=== PATIENT | female | born 1980 | race Caucasian/White ===

== ENCOUNTER → 2020-07-26 | Outpatient (CLI) | payer OTHER ==
[~2020-07-26] MED LIST: IBUP800 PO; Norco 7.5-3251 EACH PO; PRENATAL TABLE1 EAC2 PO
== END ==
LOC: LAB SHORT 07:29 → PLD 07:29
DX: D22.39 Melanocytic nevi of other parts of face (principal)
CPT/HCPCS: 88305

== ENCOUNTER 2020-09-25 02:56 | Inpatient (IN) | payer OTHER ==
[~2020-09-25] VITALS: Ht 157.5 cm; Wt 104.5 kg
[~2020-09-25 02:56] MED LIST changes: -IBUP800 PO; -Norco 7.5-3251 EACH PO
[2020-09-25 03:43] LABS: BASOPHILS ABSOLUTE AUTO 0.02 K/mm3 (0.00-0.23); BASOPHILS PERCENT AUTO 0 % (0-2); EOSINOPHILS ABSOLUTE AUTO 0.04 K/mm3 (0.00-0.68); EOSINOPHILS PERCENT AUTO 0 % (0-6); Hematocrit 34.9 % (33.0-51.0); Hemoglobin 11.7 g/dL (11.5-16.0); IMMATURE GRAN ABSOLUTE AUTO 0.07 K/mm3 (0.00-0.10); IMMATURE GRAN PERCENT AUTO 1 % (0-1); LYMPHOCYTES ABSOLUTE AUTO 1.66 K/mm3 (0.84-5.20); LYMPHOCYTES PERCENT AUTO 13 % (21-46); MONOCYTES ABSOLUTE AUTO 0.65 K/mm3 (0.16-1.47); MONOCYTES PERCENT AUTO 5 % (4-13); Mean Corpuscular HGB 30.1 pg (26.0-34.0); Mean Corpuscular HGB Conc 33.5 g/dL (31.5-36.5); Mean Corpuscular Volume 90 fL (80-100); Mean Platelet Volume 11.6 fL (9.1-12.4); NEUTROPHILS ABSOLUTE AUTO 10.04 K/mm3 (1.96-9.15); NEUTROPHILS PERCENT AUTO 80 % (41-73); Platelet Count 211 K/mm3 (150-400); RDW Coefficient Variation 13.7 % (11.7-14.2); RDW Standard Deviation 44.6 fL (35.1-46.3); Red Blood Cell Count 3.89 M/mm3 (3.80-5.20); White Blood Cell Count 12.48 K/mm3 (4.00-11.30)
--- NOTE | 2020-09-25 06:45 | NUR ---
SHIFT SUMMARY- REPORT IS GIVEN TO NIKKO TIERNEY. PT IS REPORTING LESS FREQUENT UC'S RATED 5/10 DESPITE IV FENTANYL. PT STATES SHE IS READY TO BE DONE AND TAKE A NAP. PT IS PREPPED AND READY FOR HER C/S.
--- NOTE | 2020-09-25 07:15 | NUR ---
PT HERE SINCE 0230 REPORTING CONTRATIONS. PT IS SCHDULED TO A RCS AT 0730 THIS SHIFT AND BABY IS IN BREECH PRESENTATION. PT'S LUNGS ARE CLEAR AND HAS A REGULAR HR AND RYTHM, AWAITING C/S.
[2020-09-26 05:30] LABS: Hematocrit 30.7 % (33.0-51.0); Mean Corpuscular HGB 30.4 pg (26.0-34.0); Mean Corpuscular HGB Conc 32.6 g/dL (31.5-36.5); Mean Corpuscular Volume 93 fL (80-100); Mean Platelet Volume 10.2 fL (9.1-12.4); Platelet Count 165 K/mm3 (150-400); RDW Coefficient Variation 13.9 % (11.7-14.2); RDW Standard Deviation 47.2 fL (35.1-46.3); Red Blood Cell Count 3.29 M/mm3 (3.80-5.20); White Blood Cell Count 8.94 K/mm3 (4.00-11.30)
--- NOTE | 2020-09-26 07:17 | NUR ---
09/26/20 0330 baby removed from moms sleeping arms and returned to crib, reminded mom for the #4 time of safe sleeping policy and to call RN or ask her SO to return baby to crib if she is sleepy
[2020-09-26] MEDS ORDERED: IBUP800 PO (18:49)
[2020-09-26] MEDS ORDERED: Norco 7.5-3251 EACH PO (18:50)
--- NOTE | 2020-09-27 15:44 | NUR ---
LATE ENTRY INITIATE PROTOCOL L&D - 09/25/20 @ 0509 PER SHAAN JARAMILLO & [facility]
== END 2020-09-26 20:08 | disposition home or self-care (01) | DRG 785 ==
LOC: BC 02:56
PROVIDERS: ADMIT Obstetrics & Gynecology
PROC: 10D00Z1 Extraction of Products of Conception, Low, Open Approach (ICD-10-PCS; principal; 2020-09-25 07:30)
PROC: 0UT70ZZ Resection of Bilateral Fallopian Tubes, Open Approach (ICD-10-PCS; 2020-09-25 07:30)
DX: O32.1XX0 Maternal care for breech presentation, not applicable or unspecified (principal); O34.211 Maternal care for low transverse scar from previous cesarean delivery; Z37.0 Single live birth; Z3A.39 39 weeks gestation of pregnancy; Z30.2 Encounter for sterilization; O99.214 Obesity complicating childbirth; E66.01 Morbid (severe) obesity due to excess calories
CPT/HCPCS: 36415; 85025; 85027; 86850; 86900; 86901; 86923; 88302; A9270; J0690; J1885; J2210; J2590; J2765; J3010; J7120

== ENCOUNTER → 2022-08-14 | Outpatient (CLI) | payer OTHER ==
[~2022-08-14] MED LIST changes: +IBUP800 PO; +Norco 7.5-3251 EACH PO
== END | disposition home or self-care (01) ==
LOC: PLD 15:04 → LAB SHORT 15:04
DX: N80.03 Adenomyosis of the uterus (principal)
CPT/HCPCS: 88305

== ENCOUNTER → 2024-05-03 | Outpatient (CLI) | payer OTHER ==
[2024-05-06 08:24] LABS: APTIMA MEDIA TYPE Unisex Swab; C. TRACHOMATIS BY TMA Positive (Negative); N. GONORRHOEAE BY TMA Negative (Negative); SPECIMEN SOURCE Cervical
== END ==
LOC: LAB 11:37 → LAB SHORT 11:37
PROVIDERS: Advanced Practice Midwife
DX: Z11.3 Encounter for screening for infections with a predominantly sexual mode of transmission (principal)
CPT/HCPCS: 87491; 87591